=== PATIENT | male | born 1980 | race Caucasian/White ===

== ENCOUNTER 2018-01-17 17:01 | Emergency (ER) | payer OTHER ==
--- NOTE | 2018-01-17 17:24 | UC ---
General HPI - HPI Summary HPI Summary: Pt states he needs a refill on his insulin, has been without novolog for 2 weeks and used last of Lantus last pm. states he does not have a PCP. Gives no clear reason for not having PCP - History of Current Complaint Stated Complaint: NEEDS A SCRIPT Time Seen by Provider: 01/17/18 17:13 Hx Obtained From: Patient Onset/Duration: Other - no complaints, concerned about his sugar - Allergy/Home Medications Allergies/Adverse Reactions: Allergies Allergy/AdvReac Type Severity Reaction Status Date / Time Cephalexin [From Keflex] Allergy Mild Rash And Verified 01/17/18 17:33 Itching PMH/Surg Hx/FS Hx/Imm Hx Previously Healthy: Yes Endocrine History: Diabetes, Dyslipidemia Cardiovascular History: Hypertension GI/ History: Renal Disease - Surgical History Surgical History: Yes Surgery Procedure, Year, and Place: X2 Kidney Biopsies - non-cancerous - Family History Known Family History: Positive: None, Blood Disorder - DVT GRANDFATHER Family History: DVT: Grandfather - Social History Occupation: Employed Full-time - body shop Alcohol Use: Occasionally Substance Use Type: None Substance Use Comment - Amount & Last Used: RARE Smoking Status (MU): Former Smoker Type: Cigarettes Amount Used/How Often: 5-15 PER DAY Length of Time of Smoking/Using Tobacco: 15 years. Quit 12/2015. Have You Smoked in the Last Year: Yes When Did the Patient Quit Smoking/Using Tobacco: 01/22/16 Household Exposure Type: Cigarettes - Immunization History Most Recent Influenza Vaccination: JUL 2015 Most Recent Tetanus Shot: up to date Most Recent Pneumonia Vaccination: unknown, but states he thinks he has had it in the past Review of Systems Constitutional: Negative Skin: Negative Respiratory: Negative Cardiovascular: Negative Gastrointestinal: Negative Genitourinary: Negative Neurological: Negative Psychological: Negative All Other Systems Reviewed And Are Negative: Yes Physical Exam Triage Information Reviewed: Yes Appearance: Well-Appearing, No Pain Distress, Well-Nourished Vital Signs Reviewed: Yes Respiratory Exam: Normal Cardiovascular Exam: Normal Neurological Exam: Normal Neurological: Positive: Alert Psychological Exam: Normal Skin Exam: Normal Course/Dx - Course Course Of Treatment: Finger stick >600. Patient agrees to be transferred to ER via EMS - Differential Dx - Multi-Symptom Differential Diagnoses: Other - hyperglucosemia HTN Provider Diagnoses: elevated blood sugar, elevated B/P - Physician Notifications Discussed Patient Care With: Nazia David Discharge - Sign-Out/Discharge Documenting (check all that apply): Discharge/Admit/Transfer - Report given [place] [facility] [facility] - Discharge Plan Condition: Stable Disposition: TRANS HIGHER LVL OF CARE FAC Referrals: No Primary Care Phys,NOPCP [Primary Care Provider] - - Billing Disposition and Condition Condition: STABLE Disposition: EMTALA
[2018-01-17 17:32] VITALS: BP 154/100
== END 2018-01-17 17:45 | disposition short-term general hospital (02) ==
LOC: UCEAST 17:01
DX: E11.9 Type 2 diabetes mellitus without complications (principal); Z79.4 Long term (current) use of insulin; E78.5 Hyperlipidemia, unspecified; I10 Essential (primary) hypertension; N28.9 Disorder of kidney and ureter, unspecified; Z87.891 Personal history of nicotine dependence
CPT/HCPCS: 99213; G0463

== ENCOUNTER 2018-01-17 18:23 | Emergency (ER) | payer OTHER ==
[2018-01-17] MEDS ORDERED: Insulin REGULAR(*) 1 UNITS UNIT IV PUSH ONE (18:48)
[2018-01-17] MEDS: NS 0.9% 1000 ML* 2,000 ML IV ONE ×2 (18:52→18:53)
[2018-01-17 19:15] LABS: ABS Basophils 0.1 10^3/ul (0-0.2); ABS Eosinophils 0.1 10^3/ul (0-0.6); ABS Lymphocytes 1.7 10^3/ul (1.0-4.8); ABS Monocytes 0.2 10^3/ul (0-0.8); ABS Neutrophils 5.5 10^3/ul (1.5-7.7); ABS Nucleated RBC 0 10^3/ul; Eosinophil % 1.6 % (0-6); Hematocrit 38 % (42-52); Hemoglobin 12.6 g/dl (14.0-18.0); Lymphocyte % 22.4 % (25-47); Mean Corpuscular HGB Conc 34 g/dl (31-36); Mean Corpuscular Hemoglobin 31 pg (27-31); Mean Corpuscular Volume 91 fL (80-94); Mean Platelet Volume 8.6 um3 (7.4-10.4); Nucleated Red Blood Cells % 0.1; Platelet Count 333 10^3/ul (150-450); Red Blood Count 4.11 10^6/ul (4.0-5.4); Red Cell Distribution Width 14 % (10.5-15); White Blood Count 7.6 10^3/ul (3.5-10.8)
--- NOTE | 2018-01-17 21:12 | ED ---
Miguel Valenzuela Elizabeth, scribed for Daniel French on 01/17/18 at 1912 . Complex/Multi-Sys Presentation - HPI Summary HPI Summary: This patient is a 37 year old M presenting to [facility] from [facility] for hyperglycemia. Patient has type 1 diabetes. Patient ran out of refills for his medications to manage his diabetes and does not yet have a primary care physician. Per triage note, patients glucose was 523. - History Of Current Complaint Chief Complaint: EDDiabeticProb Time Seen by Provider: 01/17/18 18:36 Hx Obtained From: Patient Onset/Duration: Lasting Hours Timing: Constant Associated Signs And Symptoms: Negative: Chest Pain, Abdominal Pain - Allergies/Home Medications Allergies/Adverse Reactions: Allergies Allergy/AdvReac Type Severity Reaction Status Date / Time cephalexin [From Keflex] Allergy Rash And Verified 01/17/18 18:37 Itching PMH/Surg Hx/FS Hx/Imm Hx Endocrine/Hematology History: Reports: Hx Diabetes - type I Denies: Hx Thyroid Disease Cardiovascular History: Reports: Hx Angina, Hx Hypertension Denies: Hx Coronary Artery Disease, Hx Hypercholesterolemia, Hx Myocardial Infarction, Hx Pacemaker/ICD, Hx Valvular Heart Disease Comment Only: Other Cardiovascular Problems/Disorders - ?SARCODOSIS Respiratory History: Denies: Hx Asthma, Hx Chronic Obstructive Pulmonary Disease (COPD) GI History: Denies: Hx Ulcer History: Reports: Hx Chronic Renal Failure - glomerlonephritis, Hx Renal Disease - DIAGNOSED WITH GLOMERULONEPHRITIS, REMISSION SINCE 1998, CKD III Sensory History: Denies: Hx Hearing Aid Psychiatric History: Denies: Hx Panic Disorder - Surgical History Surgery Procedure, Year, and Place: X2 Kidney Biopsies - non-cancerous Infectious Disease History: No Infectious Disease History: Denies: Hx Hepatitis, Hx Human Immunodeficiency Virus (HIV), History Other Infectious Disease, Traveled Outside the [place] in Last 30 Days - Family History Known Family History: Positive: None, Blood Disorder - DVT GRANDFATHER Family History: DVT: Grandfather - Social History Alcohol Use: Occasionally Substance Use Type: Reports: Marijuana Substance Use Comment - Amount & Last Used: RARE Hx Tobacco Use: Yes Smoking Status (MU): Light Every Day Tobacco Smoker Type: Cigarettes Amount Used/How Often: 5-15 PER DAY Length of Time of Smoking/Using Tobacco: 15 years. Quit 12/2015. Have You Smoked in the Last Year: Yes Review of Systems Negative: Epistaxis Positive: Other - hyperglycemia Negative: Cough Negative: Abdominal Pain All Other Systems Reviewed And Are Negative: Yes Physical Exam - Summary Physical Exam Summary: Appearance: Well appearing, no pain distress Skin: warm, dry, reflects adequate perfusion Head/face: normal Eyes: EOMI, KYLAH ENT: normal Neck: supple, non-tender Respiratory: CTA, breath sounds present Cardiovascular: RRR, pulses symmetrical ~ Abdomen: non-tender, soft Bowel: present Musculoskeletal: normal, strength/ROM intact Neuro: normal, sensory motor intact, A&Ox3 Triage Information Reviewed: Yes Vital Signs On Initial Exam: Initial Vitals Temp Pulse Resp BP Pulse Ox 98.8 F 76 20 173/118 9 01/17/18 18:28 01/17/18 18:28 01/17/18 18:28 01/17/18 18:28 01/17/18 18:28 Vital Signs Reviewed: Yes Diagnostics - Vital Signs Vital Signs Temp Pulse Resp BP Pulse Ox 01/17/18 19:00 80 21 96 01/17/18 18:33 75 18 99 01/17/18 18:28 98.8 F 76 20 173/118 9 - Laboratory Lab Results: Lab Results 01/17/18 01/17/18 01/17/18 Range/Units 19:05 19:05 20:29 WBC 7.6 (3.5-10.8) 10^3/ul RBC 4.11 (4.0-5.4) 10^6/ul Hgb 12.6 L (14.0-18.0) g/dl Hct 38 L (42-52) % MCV 91 (80-94) fL MCH 31 (27-31) pg MCHC 34 (31-36) g/dl RDW 14 (10.5-15) % Plt Count 333 (150-450) 10^3/ul MPV 8.6 (7.4-10.4) um3 Neut % (Auto) 72.7 (38-83) % Lymph % (Auto) 22.4 L (25-47) % Gladwin % (Auto) 2.4 (0-7) % Eos % (Auto) 1.6 (0-6) % Baso % (Auto) 0.9 (0-2) % Absolute Neuts (auto) 5.5 (1.5-7.7) 10^3/ul Absolute Lymphs (auto) 1.7 (1.0-4.8) 10^3/ul Absolute Monos (auto) 0.2 (0-0.8) 10^3/ul Absolute Eos (auto) 0.1 (0-0.6) 10^3/ul Absolute Basos (auto) 0.1 (0-0.2) 10^3/ul Absolute Nucleated RBC 0 10^3/ul Nucleated RBC % 0.1 Sodium 132 L (139-145) mmol/L Potassium 4.5 (3.5-5.0) mmol/L Chloride 105 (101-111) mmol/L Carbon Dioxide 23 (22-32) mmol/L Anion Gap 4 (2-11) mmol/L BUN 20 (6-24) mg/dL Creatinine 0.98 (0.67-1.17) mg/dL Est GFR ( Amer) 111.9 (>60) Est GFR (Non-Af Amer) 87.0 (>60) BUN/Creatinine Ratio 20.4 H (8-20) Glucose 419 H (70-100) mg/dL POC Glucose (mg/dL) 52 L (70-100) mg/dL Calcium 7.8 L (8.6-10.3) mg/dL Total Bilirubin 0.10 L (0.2-1.0) mg/dL AST 16 (13-39) U/L ALT 15 (7-52) U/L Alkaline Phosphatase 63 (34-104) U/L Troponin I 0.00 (<0.04) ng/mL Total Protein 5.3 L (6.4-8.9) g/dL Albumin 3.0 L (3.2-5.2) g/dL Globulin 2.3 (2-4) g/dL Albumin/Globulin Ratio 1.3 (1-3) Result Diagrams: 01/17/18 19:05 01/17/18 19:05 Lab Statement: Any lab studies that have been ordered have been reviewed, and results considered in the medical decision making process. Complex Multi-Symp Course/Dx Course Of Treatment: In the ED course the patient was given insulin then food to adjust his blood glucose to a normal level. Patient will be discharged home and is advised to follow up with a primary care physician in 3-4 days. The patient is agreeable with this plan. - Diagnoses Differential Diagnoses/HQI/PQRI: Metabolic Abnormality, Other - dka Provider Diagnoses: Type 1 diabetes mellitus, Hyperglycemia Discharge - Sign-Out/Discharge Documenting (check all that apply): Discharge/Admit/Transfer - Discharge Plan Condition: Stable Disposition: HOME Prescriptions: Insulin Aspart [Novolog] 5 unit SC TID 30 Days #1 inj Insulin Glargine,Hum.rec.anlog [Lantus Solostar 5x3 ML PENS] 40 units SUBCUT DAILY 30 Days #1 box Patient Education Materials: Diabetic Hyperglycemia (ED) Referrals: [facility] [place] [facility] REFERRAL [Outside] - 3 Days (follow up with primary care physician in 3-4 days.) Additional Instructions: follow up with primary care physician in 3-4 days. Return to the emergency department with any new or worsening symptoms. - Billing Disposition and Condition Condition: STABLE Disposition: HOME The documentation as recorded by the Miguel naylor Elizabeth accurately reflects the service I personally performed and the decisions made by Gillian patiño Emmanuel.
[2018-01-17 21:25] VITALS: BP 163/103
== END 2018-01-17 21:23 | disposition home or self-care (01) ==
LOC: ED 18:23
DX: E10.65 Type 1 diabetes mellitus with hyperglycemia (principal); F17.210 Nicotine dependence, cigarettes, uncomplicated
CPT/HCPCS: 36415; 80053; 84484; 85025; 96360; 99285

== ENCOUNTER 2018-03-11 12:23 | Emergency (ER) | payer OTHER ==
[2018-03-11 13:01] VITALS: BP 160/87
--- NOTE | 2018-03-11 13:54 | RAD ---
Indication: Head injury. Vomiting. Comparison: No relevant prior exams available on the [facility] [place]. Technique: Noncontrast CT vertex of skull through foramen magnum. Report: The sulci, ventricles, and basal cisterns are normal for age. Mcginnis matter white matter differentiation is preserved without evidence for edema. No intra or extra axial hemorrhage is detected. Unremarkable visualized orbital contents. Negative for calvarial or skull base fracture. Negative for scalp hematoma. The visualized paranasal sinuses and mastoid air spaces are clear. IMPRESSION: No CT evidence for traumatic brain injury. Negative exam.
--- NOTE | 2018-03-11 13:55 | RAD ---
INDICATION: Fall. Injury. COMPARISON: None TECHNIQUE: Noncontrast axial source images was performed from the skull base to the thoracic inlet. Coronal and and sagittal reformatted images were generated. FINDINGS: Vertebrae: There is no fracture or acute focal bony lesion. Alignment: The craniocervical junction appears normal. There is cervical spine straightening. Central Canal: There are no significant CT abnormalities of the central canal or foramina. MR imaging is a more sensitive method to evaluate the canal and foramina. Intervertebral disc spaces: There is moderate narrowing about C6-C7 with endplate sclerosis, anterior burst spur formation, uncinate process spurring, and posterior spondylitic ridge formation. There is a mild decrease in AP diameter canal. Brain: The visualized brain appears unremarkable. Soft tissues: The visualized soft tissue elements of the neck are unremarkable. The prevertebral soft tissues appear normal. The lung apices are clear. IMPRESSION: MODERATE DEGENERATIVE CHANGE C6-C7. NO ACUTE CT FINDINGS
--- NOTE | 2018-03-11 14:00 | RAD ---
INDICATION: Left middle finger injury. TECHNIQUE: 3 views of the left middle finger were obtained. FINDINGS: There is diffuse soft tissue swelling. The bones are normal alignment. No fracture is seen. Joint spaces appear maintained. IMPRESSION: SOFT TISSUE SWELLING, NO FRACTURE IS SEEN.
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
== END 2018-03-11 14:20 | disposition home or self-care (01) ==
LOC: UCEAST 12:23
DX: S09.90XA Unspecified injury of head, initial encounter (principal); S69.92XA Unspecified injury of left wrist, hand and finger(s), initial encounter; R20.2 Paresthesia of skin; V03.99XA Pedestrian with other conveyance injured in collision with car, pick-up truck or van, unspecified whether traffic or nontraffic accident, initial encounter; Y93.55 Activity, bike riding; Y92.9 Unspecified place or not applicable; E10.9 Type 1 diabetes mellitus without complications; I10 Essential (primary) hypertension; I25.2 Old myocardial infarction; Z95.0 Presence of cardiac pacemaker; F17.210 Nicotine dependence, cigarettes, uncomplicated
CPT/HCPCS: 70450; 72125; 73140; 99212; G0463

== ENCOUNTER 2018-10-05 16:50 | Emergency (ER) | payer OTHER ==
--- NOTE | 2018-10-05 20:02 | ED ---
Hypertension - HPI Summary HPI Summary: This patient is a 37 year old M presenting to [facility] with a chief complaint of hypertension since 09/23/2018. He was referred to the [facility] by Dr. Beavers at [place], and [facility] referred him to [facility]. Patient reports always feeling like shit because of diabetes, intermittent headaches in different locations (last 2 months), blind spots and blurred vision (which alleviated 09/29/2018), swollen eyes in the morning (3 months ago which have since alleviated), and SOB (patient reports it may secondary to smoking). Patient denies feeling ill, CP, and swelling during nephrotic syndrome flare-ups. Patient denies taking blood thinners but is taking Lisinopril 20 mg twice a day and propranolol 60 mg twice a day. His last physical exam was over a year ago, however he saw MILLIE Brown in July for his diabetes, during which she did bloodwork for him which was normal. Patient takes insulin for diabetes. Patient has a PMHx of nephrotic syndrome since he was 12 years old. - History of Current Complaint Chief Complaint: EDHypertension Stated Complaint: BLOOD PRESSURE HIGH Hx Obtained From: Patient Onset/Duration: Started Days Ago - 09/23/2018 Timing: Constant Alleviating Factor(s): Nothing Associated Signs & Symptoms: Chest Pain - Denies, Headaches - Starting 2 months ago, SOB - Patient reports it could be secondary to smoking - Allergies/Home Medications Allergies/Adverse Reactions: Allergies Allergy/AdvReac Type Severity Reaction Status Date / Time cephalexin [From Keflex] Allergy Rash And Verified 10/05/18 17:08 Itching PMH/Surg Hx/FS Hx/Imm Hx Endocrine/Hematology History: Reports: Hx Diabetes - type I Denies: Hx Thyroid Disease Cardiovascular History: Reports: Hx Angina, Hx Hypertension Denies: Hx Coronary Artery Disease, Hx Hypercholesterolemia, Hx Myocardial Infarction, Hx Pacemaker/ICD, Hx Valvular Heart Disease Comment Only: Other Cardiovascular Problems/Disorders - ?SARCODOSIS Respiratory History: Denies: Hx Asthma, Hx Chronic Obstructive Pulmonary Disease (COPD) GI History: Denies: Hx Ulcer History: Reports: Hx Chronic Renal Failure - glomerlonephritis, Hx Renal Disease - DIAGNOSED WITH GLOMERULONEPHRITIS, REMISSION SINCE 1998, CKD III Sensory History: Denies: Hx Hearing Aid Psychiatric History: Denies: Hx Panic Disorder - Surgical History Surgery Procedure, Year, and Place: X2 Kidney Biopsies - non-cancerous Infectious Disease History: No Infectious Disease History: Denies: Hx Hepatitis, Hx Human Immunodeficiency Virus (HIV), History Other Infectious Disease, Traveled Outside the [place] in Last 30 Days - Family History Known Family History: Positive: Blood Disorder - DVT GRANDFATHER Family History: DVT: Grandfather - Social History Alcohol Use: Occasionally Substance Use Type: Reports: Marijuana Substance Use Comment - Amount & Last Used: RARE Hx Tobacco Use: Yes Smoking Status (MU): Light Every Day Tobacco Smoker Type: Cigarettes Amount Used/How Often: 5-15 PER DAY Length of Time of Smoking/Using Tobacco: 15 years. Quit 12/2015. Have You Smoked in the Last Year: Yes Review of Systems Negative: Other - Denies feeling ill Positive: Blurred Vision - blind spots and blurred vision (which alleviated 04/2019), Other - swollen eyes in the morning (3 months ago which have since alleviated) Negative: Chest Pain Positive: Shortness Of Breath - SOB (patient reports it may secondary to smoking ) Negative: Edema - swelling during nephrotic syndrome flare-ups Positive: Headache - Intermittent headaches in different locations (last 2 months) All Other Systems Reviewed And Are Negative: Yes Physical Exam - Summary Physical Exam Summary: Appearance: Well-appearing, Well-nourished, lying in bed comfortably Skin: Warm, dry, no obvious rash Eyes: sclera anicteric, no conjunctival pallor, no papilledema ENT: mucous membranes moist, pharynx appears normal Neck: Supple, nontender Respiratory: Clear to auscultation, no signs of respiratory distress Cardiovascular: Normal S1, S2. No murmurs. Normal distal pulses in tibial and radial bilaterally. No heave, no extra heart sounds. Abdomen: Soft, nontender, normal active bowel sounds present Musculoskeletal: Normal, Strength/ROM Intact Neurological: A&Ox3, awake and alert, mentation is normal, speech is fluent and appropriate Psychiatric: affect is normal, does not appear anxious or depressed Triage Information Reviewed: Yes Vital Signs On Initial Exam: Initial Vitals Temp Pulse Resp BP Pulse Ox 98.5 F 80 18 150/101 99 10/05/18 17:03 10/05/18 17:03 10/05/18 17:03 10/05/18 17:03 10/05/18 17:03 Vital Signs Reviewed: Yes Diagnostics - Vital Signs Vital Signs Temp Pulse Resp BP Pulse Ox 10/05/18 18:54 98.2 F 86 16 162/89 100 10/05/18 17:03 98.5 F 80 18 150/101 99 - Laboratory Result Diagrams: 10/05/18 19:55 10/05/18 19:55 Lab Statement: Any lab studies that have been ordered have been reviewed, and results considered in the medical decision making process. - CT Brain CT CT Interpretation Completed By: Radiologist Summary of CT Findings: 22:47. No acute intracranial abnormality. ED Physician has reviewed this imaging report. - EKG 19:18 Cardiac Rate: NL - 74 BPM EKG Rhythm: Sinus Rhythm ST Segment: Normal Summary of EKG Findings: Consider left ventricular hypertrophy Hypertension Course/Dx - Course Course Of Treatment: This patient is a 37 year old M presenting to [facility] with a chief complaint of hypertension since 09/23/2018. He was referred to the [facility] by Dr. Beavers at [place], and [facility] referred him to [facility]. Patient reports always feeling like shit because of diabetes, intermittent headaches in different locations (last 2 months), blind spots and blurred vision (which alleviated 04/2019), swollen eyes in the morning (3 months ago which have since alleviated) , and SOB (patient reports it may secondary to smoking). Patient denies feeling ill, CP, and swelling during nephrotic syndrome flare-ups. Patient denies taking blood thinners but is taking Lisinopril 20 mg twice a day and propranolol 60 mg twice a day. His last physical exam was over a year ago, however he saw MILLIE Brown in July for his diabetes, during which she did bloodwork for him which was normal. Patient takes insulin for diabetes. Patient has a PMHx of nephrotic syndrome since he was 12 years old. There was no evidence of end organ failure consequent to the elevated BP. I instructed the patient to continue current medications and check in with his PCP as soon as possible. He had protein in his urine, but that was likely related to his nephrotic syndrome rather than due to the elevated BP. The patient understands and agrees. - Diagnoses Provider Diagnoses: Headache, Nephrotic syndrome, Hypertension Discharge - Sign-Out/Discharge Documenting (check all that apply): Patient Departure - D/C - Discharge Plan Condition: Good Disposition: HOME Patient Education Materials: Chronic Hypertension (ED) Referrals: Sukhjinder Beavers, [Primary Care Provider] - As Soon As Possible Additional Instructions: We have not turned up any evidence of end organ failure consequent to your elevated BP. Continue your current medications and check in with your PCP as soon as possible. You did have protein in your urine, but that is likely related to your nephrotic syndrome rather than due to the elevated BP. - Billing Disposition and Condition Condition: GOOD Disposition: Home - Attestation Statements Document Initiated by Kyle: Yes Documenting Scribe: Christiano Cotton Provider For Whom Kyle is Documenting (Include Credential): Kin Sotomayor MD Scribe Attestation: Christiano Valenzuela scrlaytoned for Kin Sotomayor MD on 10/06/18 at 0314. Scribe Documentation Reviewed: Yes Provider Attestation: The documentation as recorded by the Christiano naylor accurately reflects the service I personally performed and the decisions made by me, Kin Sotomayor MD Status of Scribe Document: Viewed
[2018-10-05 20:03] LABS: ABS Basophils 0.1 10^3/ul (0-0.2); ABS Eosinophils 0.3 10^3/ul (0-0.6); ABS Lymphocytes 2.2 10^3/ul (1.0-4.8); ABS Monocytes 0.7 10^3/ul (0-0.8); ABS Neutrophils 5.3 10^3/ul (1.5-7.7); ABS Nucleated RBC 0 10^3/ul; Hematocrit 43 % (42-52); Hemoglobin 14.7 g/dl (14.0-18.0); Lymphocyte % 25.6 %; Mean Corpuscular HGB Conc 35 g/dl (31-36); Mean Corpuscular Hemoglobin 30 pg (27-31); Mean Corpuscular Volume 88 fL (80-94); Mean Platelet Volume 8.6 fL (7.4-10.4); Nucleated Red Blood Cells % 0; Platelet Count 361 10^3/ul (150-450); Red Blood Count 4.86 10^6/ul (4.00-5.40); Red Cell Distribution Width 14 % (10.5-15); White Blood Count 8.6 10^3/ul (3.5-10.8)
[2018-10-05 20:20] LABS: BUN/Creatinine Ratio 22.7 (8-20); Calcium 8.9 mg/dL (8.6-10.3); EGFR Non-African American 69.6 (>60); Potassium 4.3 mmol/L (3.5-5.0)
[2018-10-05 20:37] LABS: Urine Appearance Clear; Urine Bacteria Absent (Absent); Urine Bilirubin Negative (Negative); Urine Blood Negative (Negative); Urine Color Yellow; Urine Glucose 1+(50 mg/dL) (Negative); Urine Ketones Negative (Negative); Urine Nitrite Negative (Negative); Urine Protein 3+(>=500 mg/dL) (Negative); Urine Red Blood Cell Absent (Absent); Urine Specific Gravity 1.014 (1.010-1.030); Urine Urobilinogen Negative (Negative); Urine White Blood Cell Trace(0-5/hpf) (Absent)
[2018-10-05 23:05] VITALS: BP 155/98
== END 2018-10-05 23:05 | disposition home or self-care (01) ==
LOC: ED 16:50
DX: R51 Headache (principal); N04.9 Nephrotic syndrome with unspecified morphologic changes; I10 Essential (primary) hypertension
CPT/HCPCS: 36415; 70450; 80048; 81003; 81015; 85025; 87086; 93005; 99283

== ENCOUNTER 2018-10-31 19:35 | Emergency (ER) | payer OTHER ==
[2018-10-31 22:21] LABS: ABS Basophils 0.1 10^3/ul (0-0.2); ABS Eosinophils 0.2 10^3/ul (0-0.6); ABS Lymphocytes 2.5 10^3/ul (1.0-4.8); ABS Monocytes 0.8 10^3/ul (0-0.8); ABS Neutrophils 4.4 10^3/ul (1.5-7.7); ABS Nucleated RBC 0 10^3/ul; Eosinophil % 2.6 %; Hematocrit 40 % (42-52); Hemoglobin 13.7 g/dl (14.0-18.0); Lymphocyte % 31.2 %; Mean Corpuscular HGB Conc 35 g/dl (31-36); Mean Corpuscular Hemoglobin 30 pg (27-31); Mean Corpuscular Volume 88 fL (80-94); Mean Platelet Volume 8.2 fL (7.4-10.4); Nucleated Red Blood Cells % 0; Platelet Count 380 10^3/ul (150-450); Red Blood Count 4.51 10^6/ul (4.00-5.40); Red Cell Distribution Width 13 % (10.5-15); White Blood Count 7.9 10^3/ul (3.5-10.8)
[2018-10-31 22:38] LABS: Albumin 3.4 g/dL (3.2-5.2); Albumin/Globulin Ratio 1.2 (1-3); BUN/Creatinine Ratio 22.7 (8-20); Calcium 8.6 mg/dL (8.6-10.3); EGFR African American 64.4 (>60); EGFR Non-African American 53.3 (>60); Globulin 2.8 g/dL (2-4); Potassium 4.6 mmol/L (3.5-5.0); Total Bilirubin 0.2 mg/dL (0.2-1.0); Total Protein 6.2 g/dL (6.4-8.9)
--- NOTE | 2018-10-31 22:44 | ED ---
GI/ HPI - HPI Summary HPI Summary: This patient is a 37 year old M presenting [facility] because Dr. Beavres from [facility] states that he had abnormal bloodwork and should go to [facility] to be admitted. He was seen two days ago and today at [facility]. The patient states that he doesnt have any symptoms. The patient has previously been on steroids. PMHX former smoker, kidney disease, IDDM, HTN. No PMHx dialysis. Vitals in the room: HR 87 bpm, BP 144/88. - History of Current Complaint Chief Complaint: EDGeneral Time Seen by Provider: 10/31/18 21:58 Stated Complaint: ABNORMAL BLOOD WORK Hx Obtained From: Patient Pain Intensity: 0 Associated Signs and Symptoms: Positive: Negative - Allergy/Home Medications Allergies/Adverse Reactions: Allergies Allergy/AdvReac Type Severity Reaction Status Date / Time cephalexin [From Keflex] Allergy Rash And Verified 10/31/18 19:45 Itching PMH/Surg Hx/FS Hx/Imm Hx Endocrine/Hematology History: Reports: Hx Diabetes - type I Denies: Hx Thyroid Disease Cardiovascular History: Reports: Hx Angina, Hx Hypertension Denies: Hx Coronary Artery Disease, Hx Hypercholesterolemia, Hx Myocardial Infarction, Hx Pacemaker/ICD, Hx Valvular Heart Disease Comment Only: Other Cardiovascular Problems/Disorders - ?SARCODOSIS Respiratory History: Denies: Hx Asthma, Hx Chronic Obstructive Pulmonary Disease (COPD) GI History: Denies: Hx Ulcer History: Reports: Hx Chronic Renal Failure - glomerlonephritis, Hx Renal Disease - DIAGNOSED WITH GLOMERULONEPHRITIS, REMISSION SINCE 1998, CKD III Sensory History: Denies: Hx Hearing Aid Psychiatric History: Denies: Hx Panic Disorder - Surgical History Surgery Procedure, Year, and Place: X2 Kidney Biopsies - non-cancerous - Immunization History Date of Tetanus Vaccine: UTD Date of Influenza Vaccine: UTD Infectious Disease History: No Infectious Disease History: Denies: Hx Hepatitis, Hx Human Immunodeficiency Virus (HIV), History Other Infectious Disease, Traveled Outside the [place] in Last 30 Days - Family History Known Family History: Positive: Blood Disorder - DVT GRANDFATHER Family History: DVT: Grandfather - Social History Alcohol Use: Rare Substance Use Type: Reports: Marijuana Substance Use Comment - Amount & Last Used: RARE Hx Tobacco Use: Yes Smoking Status (MU): Former Smoker Type: Cigarettes Amount Used/How Often: 5-15 PER DAY Length of Time of Smoking/Using Tobacco: 15 years. Quit 12/2015. Have You Smoked in the Last Year: Yes Review of Systems - ROS Summary Review of Systems Summary: Patient states he has no symptoms Constitutional: Negative Genitourinary: Negative All Other Systems Reviewed And Are Negative: Yes Physical Exam - Summary Physical Exam Summary: VITAL SIGNS: Reviewed. GENERAL: Patient is a well-developed and nourished male who is lying comfortable in the stretcher. Patient is not in any acute respiratory distress. HEAD AND FACE: No signs of trauma. No ecchymosis, hematomas or skull depressions. No sinus tenderness. EYES: PERRLA, EOMI x 2, No injected conjunctiva, no nystagmus. EARS: Hearing grossly intact. Ear canals and tympanic membranes are within normal limits. MOUTH: Oropharynx within normal limits. NECK: Supple, trachea is midline, no adenopathy, no JVD, no carotid bruit, no c- spine tenderness, neck with full ROM. CHEST: Symmetric, no tenderness at palpation LUNGS: Clear to auscultation bilaterally. No wheezing or crackles. CVS: Regular rate and rhythm, S1 and S2 present, no murmurs or gallops appreciated. ABDOMEN: Soft, non-tender. No signs of distention. No rebound no guarding, and no masses palpated. Bowel sounds are normal. EXTREMITIES: FROM in all major joints, no edema, no cyanosis or clubbing. NEURO: Alert and oriented x 3. No acute neurological deficits. Speech is normal and follows commands. SKIN: Dry and warm GCS: 15 Triage Information Reviewed: Yes Vital Signs On Initial Exam: Initial Vitals Temp Pulse Resp BP Pulse Ox 98.2 F 91 16 165/104 98 10/31/18 19:43 10/31/18 19:43 10/31/18 19:43 10/31/18 19:43 10/31/18 19:43 Vital Signs Reviewed: Yes Diagnostics - Vital Signs Vital Signs Temp Pulse Resp BP Pulse Ox 10/31/18 22:00 82 98 10/31/18 21:53 87 144/88 97 10/31/18 21:25 84 96 10/31/18 21:23 82 178/100 98 10/31/18 19:43 98.2 F 91 16 165/104 98 - Laboratory Lab Results: Lab Results 10/31/18 10/31/18 Range/Units 22:12 22:12 WBC 7.9 (3.5-10.8) 10^3/ul RBC 4.51 (4.00-5.40) 10^6/ul Hgb 13.7 L (14.0-18.0) g/dl Hct 40 L (42-52) % MCV 88 (80-94) fL MCH 30 (27-31) pg MCHC 35 (31-36) g/dl RDW 13 (10.5-15) % Plt Count 380 (150-450) 10^3/ul MPV 8.2 (7.4-10.4) fL Neut % (Auto) 55.4 % Lymph % (Auto) 31.2 % [place] % (Auto) 9.8 % Eos % (Auto) 2.6 % Baso % (Auto) 1.0 % Absolute Neuts (auto) 4.4 (1.5-7.7) 10^3/ul Absolute Lymphs (auto) 2.5 (1.0-4.8) 10^3/ul Absolute Monos (auto) 0.8 (0-0.8) 10^3/ul Absolute Eos (auto) 0.2 (0-0.6) 10^3/ul Absolute Basos (auto) 0.1 (0-0.2) 10^3/ul Absolute Nucleated RBC 0 10^3/ul Nucleated RBC % 0 Sodium 135 (135-145) mmol/L Potassium 4.6 (3.5-5.0) mmol/L Chloride 107 (101-111) mmol/L Carbon Dioxide 23 (22-32) mmol/L Anion Gap 5 (2-11) mmol/L BUN 34 H (6-24) mg/dL Creatinine 1.50 H (0.67-1.17) mg/dL Est GFR ( Amer) 64.4 (>60) Est GFR (Non-Af Amer) 53.3 (>60) BUN/Creatinine Ratio 22.7 H (8-20) Glucose 64 L (70-100) mg/dL Calcium 8.6 (8.6-10.3) mg/dL Total Bilirubin 0.20 (0.2-1.0) mg/dL AST 31 (13-39) U/L ALT 29 (7-52) U/L Alkaline Phosphatase 72 (34-104) U/L Total Protein 6.2 L (6.4-8.9) g/dL Albumin 3.4 (3.2-5.2) g/dL Globulin 2.8 (2-4) g/dL Albumin/Globulin Ratio 1.2 (1-3) Result Diagrams: 10/31/18 22:12 10/31/18 22:12 Lab Statement: Any lab studies that have been ordered have been reviewed, and results considered in the medical decision making process. GIGU Course/Dx - Course Course Of Treatment: This patient is a 37 year old M presenting to [facility] because Dr. Beavers from [facility] states that he had abnormal bloodwork and should go to [facility] to be admitted. He was seen two days ago and today at [facility]. The patient states that he doesnt have any symptoms. Test results with no significant abnormalities. Patient will be discharged with and follow up from Dr. Beavers. The patient is agreeable with this plan. - Diagnoses Provider Diagnoses: No known problems Discharge - Sign-Out/Discharge Documenting (check all that apply): Patient Departure - discharge Patient Received Moderate/Deep Sedation with Procedure: No - Discharge Plan Condition: Stable Disposition: HOME Patient Education Materials: Chronic Kidney Disease (ED) Referrals: Sukhjinder Beavers DO [Primary Care Provider] - Additional Instructions: Please follow up with Dr. Beavers on Friday. RETURN TO THE EMERGENCY DEPARTMENT FOR CHANGING OR WORSENING SYMPTOMS. - Billing Disposition and Condition Condition: STABLE Disposition: Home - Attestation Statements Document Initiated by Triniibe: Yes Documenting Scribe: Napoleon Kerr Provider For Whom Kyle is Documenting (Include Credential): Ned Oviedo MD Scribe Attestation: Napoleon Valenzuela, deedeeed for Nde Oviedo MD on 11/01/18 at 2116. Scribe Documentation Reviewed: Yes Provider Attestation: The documentation as recorded by the Napoleon naylor accurately reflects the service I personally performed and the decisions made by , Ned Oviedo MD Status of Scribe Document: Viewed
[2018-10-31 23:24] VITALS: BP 188/97
== END 2018-10-31 23:29 | disposition home or self-care (01) ==
LOC: ED 19:35
DX: R79.9 Abnormal finding of blood chemistry, unspecified (principal); Z87.891 Personal history of nicotine dependence; E10.9 Type 1 diabetes mellitus without complications; I10 Essential (primary) hypertension
CPT/HCPCS: 36415; 80053; 85025; 99282

== ENCOUNTER 2019-04-09 09:43 | Emergency (ER) | payer OTHER ==
[2019-04-09 10:17] VITALS: BP 142/93
[2019-04-09] MEDS ORDERED: Diphth/Teta/Acell Pertusis* 0.5 ML SYR ** FOR 6 WKS TO 7 YRS OLD IM ONE (10:34)
--- NOTE | 2019-04-09 10:34 | UC ---
Laceration HPI - HPI Summary HPI Summary: 38-year-old male who was at work when he was pounding a hole with metal pipe and hit a stone and kicked back and hit him in the right forehead causing an approximately 2.0 cm laceration. Bleeding is controlled. No loss of consciousness. Unknown last tetanus immunization. - History Of Current Complaint Chief Complaint: UCLaceration Stated Complaint: HEAD LAC Time Seen by Provider: 04/09/19 10:33 Hx Obtained From: Patient Laceration Location: Head Mechanism Of Injury: Sharp Trauma Onset/Duration: Sudden Onset Severity: Mild Pain Intensity: 1 Aggravating Factors: Nothing - Allergies/Home Medications Allergies/Adverse Reactions: Allergies Allergy/AdvReac Type Severity Reaction Status Date / Time cephalexin [From Keflex] Allergy Rash And Verified 04/09/19 10:04 Itching Home Medications: Home Medications Carvedilol TAB* [Coreg TAB*] 25 mg PO DAILY 04/09/19 [History Confirmed 04/09/19 ] Chlorthalidone TAB* [Hygroton TAB*] 25 mg PO DAILY 04/09/19 [History Confirmed 04/09/19] Multivit-Min/Folic/Vit K/Lycop [Men's Multivitamin Caplet] 1 each PO DAILY 04/09 [History Confirmed 04/09/19] Stollings-3/Dha/Epa/Fish Oil [Stollings-3 Fish Oil Softgel] 1 each PO DAILY 04/09/19 [ History Confirmed 04/09/19] Torsemide TAB* [Demadex*] 20 mg PO DAILY 04/09/19 [History Confirmed 04/09/19] buPROPion TAB* [Wellbutrin TAB*] 100 mg PO BID 04/09/19 [History Confirmed 04/09] cloNIDine TAB* [Catapres 0.1 MG TAB*] 0.1 mg PO BID 04/09/19 [History Confirmed 04/09/19] cycloSPORINE Modified CAP(*) [Neoral CAP(*)] 250 mg PO BID 04/09/19 [History Confirmed 04/09/19] hydrALAZINE TAB* [Apresoline TAB*] 100 mg PO TID 04/09/19 [History Confirmed ] predniSONE TAB* [Deltasone 20 MG TAB*] 20 mg PO DAILY 04/09/19 [History Confirmed 04/09/19] PMH/Surg Hx/FS Hx/Imm Hx Previously Healthy: Yes Endocrine History: Diabetes Cardiovascular History: Hypertension - Surgical History Surgical History: Yes Surgery Procedure, Year, and Place: X2 Kidney Biopsies - non-cancerous - Family History Known Family History: Positive: None, Blood Disorder - DVT GRANDFATHER Family History: DVT: Grandfather - Social History Occupation: Employed Full-time Alcohol Use: Rare Substance Use Type: None Substance Use Comment - Amount & Last Used: RARE Smoking Status (MU): Former Smoker Type: Cigarettes Amount Used/How Often: 5-15 PER DAY Length of Time of Smoking/Using Tobacco: 15 years. Quit 12/2015. Have You Smoked in the Last Year: Yes When Did the Patient Quit Smoking/Using Tobacco: 01/22/16 Household Exposure Type: Cigarettes - Immunization History Most Recent Influenza Vaccination: JUL 2015 Most Recent Tetanus Shot: up to date Most Recent Pneumonia Vaccination: unknown, but states he thinks he has had it in the past Review of Systems All Other Systems Reviewed And Are Negative: Yes Constitutional: Positive: Negative Skin: Positive: Other - 2.0 cm laceration above the right eyebrow, bleeding is controlled. Eyes: Positive: Negative Is Patient Immunocompromised?: No Physical Exam Triage Information Reviewed: Yes Appearance: Well-Appearing, No Pain Distress, Well-Nourished Vital Signs: Initial Vital Signs Temp 98.7 F 04/09/19 10:10 Pulse 76 04/09/19 10:10 Resp 16 04/09/19 10:10 BP 142/93 04/09/19 10:10 Pulse Ox 100 04/09/19 10:10 Vital Signs Reviewed: Yes Eyes: Positive: Conjunctiva Clear - PERRLA, EOMI ENT: Positive: Hearing grossly normal, Pharynx normal, TMs normal, Uvula midline Neck: Positive: Supple, Nontender, No Lymphadenopathy Respiratory: Positive: Chest non-tender, Lungs clear, Normal breath sounds, No respiratory distress, No accessory muscle use Cardiovascular: Positive: RRR, No Murmur, Pulses Normal, Brisk Capillary Refill Abdomen Description: Positive: Nontender, No Organomegaly, Soft Bowel Sounds: Positive: Present Musculoskeletal: Positive: Strength Intact, ROM Intact - Skull was intact, good peripheral pulses neuro sensation capillary refill, good arm and leg strength against resistance. Neurological Exam: Normal Neurological: Positive: Alert, Muscle Tone Normal - Cranial nerves II through XII are intact. Psychological Exam: Normal Skin Exam: Normal Laceration Repair - Laceration Repair 1 Description: Linear Laceration Size After Repair: Length (cm) - 2.0 cm. Modified For Repair: No Type Injection: Local Anesthesia Used: 1.0% Lido Cleansing Completed Via Routine Prep: Yes Irrigation With Pressure Irrigation Device: Yes Closure Material: Sutures Closure Method: Single Layer Suture Of: Skin Suture Type: Nylon - Sutures placed numbered 3. Patient tolerated procedure well. Laceration Course/Dx - Course/Dx Course Of Treatment: Patient is comfortable here. He is given head injury precautions. A Band-Aid was placed of the wound. He wanted to return to work therefore a note was written for that. - Diagnosis Provider Diagnosis: Laceration of forehead Discharge - Sign-Out/Discharge Documenting (check all that apply): Patient Departure All imaging exams completed and their final reports reviewed: No Studies - Discharge Plan Condition: Fair Disposition: HOME Patient Education Materials: Care For Your Stitches (DC), Head Injury (ED) Forms: *Work Release Referrals: Sukhjinder Beavers DO [Primary Care Provider] - Additional Instructions: Follow-up with your primary care provider in 5 days for suture removal. You received TdaP...Tetanus immunization today which is good for 8-10 years. Go to the emergency room if you develop any change in your normal mental status vomiting or any worsening symptoms. - Billing Disposition and Condition Condition: FAIR Disposition: Home - Attestation Statements Provider Attestation: Per institutional requirements, I have reviewed the chart, however, I was not consulted specifically or made aware of this patient by the midlevel provider. I did not personally evaluate, interact with , or disposition this patient.
[2019-04-09] MEDS ORDERED: Lidocaine 1% MPF ** 5 ML VIAL INJ ONE (10:36)
[2019-04-09] MEDS ORDERED: Tetan/Diph/Pertus SYR(Tdap)* 0.5 ML SYR(BOOSTRIX) use SYR IM ONE (10:41)
== END 2019-04-09 11:36 | disposition home or self-care (01) ==
LOC: UCEAST 09:43
DX: S01.81XA Laceration without foreign body of other part of head, initial encounter (principal); W20.8XXA Other cause of strike by thrown, projected or falling object, initial encounter; Y93.89 Activity, other specified; Y92.89 Other specified places as the place of occurrence of the external cause; Y99.0 Civilian activity done for income or pay; E11.9 Type 2 diabetes mellitus without complications; I10 Essential (primary) hypertension; Z87.891 Personal history of nicotine dependence
CPT/HCPCS: 90471; 90715; 99211; G0463